=== PATIENT | male | born 1975 | race Caucasian/White ===

== ENCOUNTER 2018-07-30 16:17 | Emergency (ER) | payer BC ==
[2018-07-30 17:04] VITALS: BP 129/63
[2018-07-30 17:24] LABS: Influenza A Molecular POSITIVE (Negative)
--- NOTE | 2018-07-30 17:27 | UC ---
FLU HPI - HPI Summary HPI Summary: 42-year-old male comes to clinic today with chief complaint of 3 days of symptoms of fever chills body aches some rhinorrhea and a mild sore throat. Takes ibuprofen which helped some with his discomfort but not very much. No chest congestion no shortness of breath. - History of Current Complaint Chief Complaint: UCRespiratory Stated Complaint: SORE THROAT, CONGESTION Time Seen by Provider: 07/30/18 16:59 Pain Intensity: 3 - Allergy/Home Medications Allergies/Adverse Reactions: Allergies Allergy/AdvReac Type Severity Reaction Status Date / Time diphenhydramine Allergy Unknown Rash Verified 07/30/18 16:57 [From Benadryl] bananas Allergy Rash And Uncoded 07/30/18 16:57 Itching Home Medications: Home Medications Pseudoephedrine TAB* [Sudafed TAB*] 30 mg PO Q6H PRN 07/30/18 [History Confirmed 07/30/18] PMH/Surg Hx/FS Hx/Imm Hx Previously Healthy: Yes - Surgical History Surgical History: Yes Surgery Procedure, Year, and Place: ADENOIDECTOMY. TONSILS OR ADNOIDS- PT NOT SURE - Family History Known Family History: Positive: Non-Contributory - Social History Alcohol Use: Occasionally Substance Use Type: None Smoking Status (MU): Never Smoked Tobacco Household Exposure Type: Cigarettes - Immunization History Most Recent Tetanus Shot: UTD PER PT Review of Systems All Other Systems Reviewed And Are Negative: Yes Constitutional: Positive: Fever, Chills Skin: Positive: Negative Eyes: Positive: Negative ENT: Positive: Sore Throat, Nasal Discharge Respiratory: Positive: Negative Cardiovascular: Positive: Negative Gastrointestinal: Positive: Negative Motor: Positive: Negative Neurovascular: Positive: Negative Musculoskeletal: Positive: Myalgia Neurological: Positive: Negative Psychological: Positive: Negative Is Patient Immunocompromised?: No Physical Exam Triage Information Reviewed: Yes Appearance: No Pain Distress, Well-Nourished, Ill-Appearing - MILD Vital Signs: Initial Vital Signs Temp 100.7 F 07/30/18 16:58 Pulse 112 07/30/18 16:58 Resp 20 07/30/18 16:58 BP 129/63 07/30/18 16:58 Pulse Ox 96 07/30/18 16:58 Vital Signs Reviewed: Yes Eye Exam: Normal Eyes: Positive: Conjunctiva Clear ENT: Positive: Pharyngeal erythema, Nasal congestion, Nasal drainage, TMs normal Neck exam: Normal Neck: Positive: Supple Respiratory: Positive: Lungs clear, Normal breath sounds, No respiratory distress Cardiovascular: Positive: Tachycardia Musculoskeletal Exam: Normal Musculoskeletal: Positive: Strength Intact, ROM Intact Neurological Exam: Normal Neurological: Positive: Alert, Muscle Tone Normal Psychological Exam: Normal Psychological: Positive: Age Appropriate Behavior Skin Exam: Normal Flu Course/Dx - Differential Dx/Diagnosis Provider Diagnosis: Influenza Discharge - Sign-Out/Discharge Documenting (check all that apply): Patient Departure All imaging exams completed and their final reports reviewed: No Studies - Discharge Plan Condition: Stable Disposition: HOME Prescriptions: Oseltamivir CAP* [Tamiflu CAP*] 75 mg PO BID #10 cap Patient Education Materials: Influenza (ED) Referrals: Luciano Rasheed DO [Primary Care Provider] - Additional Instructions: FOLLOW UP WITH YOUR DOCTOR IF NOT COMPLETELY IMPROVED. GET RECHECKED SOONER WITH ANY WORSENING OF YOUR CONDITION OR QUESTIONS OR CONCERNS. - Billing Disposition and Condition Condition: STABLE Disposition: Home
== END 2018-07-30 17:35 | disposition home or self-care (01) ==
LOC: UCCORT 16:17
DX: J10.1 Influenza due to other identified influenza virus with other respiratory manifestations (principal); Z88.8 Allergy status to other drugs, medicaments and biological substances
CPT/HCPCS: 87651; 99202; G0463

== ENCOUNTER 2019-08-07 07:59 | Emergency (ER) | payer SELFPAY ==
[2019-08-07 08:33] VITALS: BP 130/69
[2019-08-07 08:53] LABS: Influenza B Molecular POSITIVE (Negative)
--- NOTE | 2019-08-07 08:55 | UC ---
Respiratory Complaint HPI - HPI Summary HPI Summary: 43 yo with progressive symptoms of cough, congestion, with increased chills and myalgias yesterday. - History of Current Complaint Chief Complaint: UCRespiratory Stated Complaint: CHILLS,CONGESTION,ACHES Time Seen by Provider: 08/07/19 08:53 Hx Obtained From: Patient Onset/Duration: Gradual Onset, Lasting Days Timing: Constant Severity Initially: Mild Severity Currently: Moderate Pain Intensity: 2 Character: Cough: Nonproductive Associated Signs And Symptoms: Positive: Fever, Nasal Congestion - Risk Factors Pulmonary Embolism Risk Factors: Negative Cardiac Risk Factors: Negative Pseudomonas Risk Factors: Negative Tuberculosis Risk Factors: Negative - Allergies/Home Medications Allergies/Adverse Reactions: Allergies Allergy/AdvReac Type Severity Reaction Status Date / Time diphenhydramine Allergy Unknown Rash Verified 08/07/19 08:33 [From Benadryl] bananas Allergy Rash And Uncoded 08/07/19 08:33 Itching PMH/Surg Hx/FS Hx/Imm Hx - Surgical History Surgical History: Yes Surgery Procedure, Year, and Place: ADENOIDECTOMY. TONSILS OR ADNOIDS- PT NOT SURE - Family History Known Family History: Positive: Non-Contributory - Social History Alcohol Use: Occasionally Substance Use Type: None Smoking Status (MU): Never Smoked Tobacco Household Exposure Type: Cigarettes - Immunization History Most Recent Tetanus Shot: UTD PER PT Review of Systems All Other Systems Reviewed And Are Negative: Yes Constitutional: Positive: Fatigue Skin: Positive: Negative ENT: Positive: Sore Throat, Nasal Discharge Respiratory: Positive: Cough Cardiovascular: Positive: Negative Gastrointestinal: Positive: Negative Genitourinary: Positive: Negative Motor: Positive: Negative Neurovascular: Positive: Negative Musculoskeletal: Positive: Myalgia Neurological: Positive: Negative Psychological: Positive: Negative Is Patient Immunocompromised?: No Physical Exam Triage Information Reviewed: Yes Appearance: No Pain Distress, Ill-Appearing Vital Signs: Initial Vital Signs Temp 98.7 F 08/07/19 08:25 Pulse 98 08/07/19 08:25 Resp 20 08/07/19 08:25 BP 130/69 08/07/19 08:25 Pulse Ox 100 08/07/19 08:25 Eyes: Positive: Conjunctiva Inflamed ENT: Positive: Pharynx normal, Pharyngeal erythema Neck: Positive: Supple, Nontender, No Lymphadenopathy Respiratory: Positive: Lungs clear, Normal breath sounds, No respiratory distress Cardiovascular: Positive: RRR, No Murmur Bowel Sounds: Positive: Present Musculoskeletal Exam: Normal Neurological Exam: Normal Psychological Exam: Normal Skin Exam: Normal Diagnostics - Laboratory Lab Results: influenza B positive Respiratory Course/Dx - Course Course Of Treatment: fluids, rest ibuprofen - Differential Dx/Diagnosis Differential Diagnosis/HQI/PQRI: Bronchitis, Influenza, Sinusitis Provider Diagnosis: Influenza Discharge ED - Sign-Out/Discharge Documenting (check all that apply): Patient Departure All imaging exams completed and their final reports reviewed: No Studies - Discharge Plan Condition: Stable Disposition: HOME Prescriptions: Oseltamivir CAP* [Tamiflu CAP*] 75 mg PO BID #10 cap Patient Education Materials: Influenza (ED) Referrals: Luciano Rasheed DO [Primary Care Provider] - Additional Instructions: Use ibuprofen 600mg up to 4 times per day for fever. Ensure a high intake of fluids. Tamiflu has been prescribed to help to blunt the course of the illness, but symptoms can persist for up to 10 days. - Billing Disposition and Condition Condition: STABLE Disposition: Home
== END 2019-08-07 09:29 | disposition home or self-care (01) ==
LOC: UCCORT 07:59
DX: J11.1 Influenza due to unidentified influenza virus with other respiratory manifestations (principal); Z91.018 Allergy to other foods; Z88.8 Allergy status to other drugs, medicaments and biological substances
CPT/HCPCS: 99212; G0463